=== PATIENT | male | born 1945 | race Caucasian/White ===

== ENCOUNTER 2017-03-13 05:59 | Emergency (ER) | payer MEDICARE ==
[2017-03-13] MEDS ORDERED: Sodium Chloride 0.9% 1,000 ML IV STA (06:22)
[2017-03-13] MEDS ORDERED: Ondansetron 4 MG/2 ML SDV IVPUSH ONE (06:27)
[2017-03-13] MEDS ORDERED: HYDROmorphone 0.5 MG/0.5 ML Syringe IVPUSH ONE (06:27)
--- NOTE | 2017-03-13 06:27 | EDM.PDOC ---
<OfficerVince - Last Filed: 03/13/17 06:24> ED HPI GENERAL MEDICAL PROBLEM - General Chief Complaint: Abdominal Pain Stated Complaint: ABD PAIN Time Seen by Provider: 03/13/17 06:00 Source of Information: Reports: Patient, Old Records, RN Notes Reviewed History Limitations: Reports: No Limitations - History of Present Illness INITIAL COMMENTS - FREE TEXT/NARRATIVE: 71-year-old gentleman presents emergency department day complaint of left flank pain, he states it started in the evening yesterday and it progressively got worse through the night he does feel nauseated also has a history of abdominal aneurysm rupture is concerned as the feeling feels very similar to that no lightheadedness no syncopal events he is not diaphoretic LLQ/ Left flank Pain Score (Numeric/FACES): 8 - Related Data Allergies Allergy/AdvReac Type Severity Reaction Status Date / Time Penicillins Allergy Rash Verified 03/13/17 06:10 Sulfa (Sulfonamide Allergy Rash Verified 03/13/17 06:10 Antibiotics) Home Meds: Home Meds ALPRAZolam [Alprazolam] 1 tab PO TID PRN 03/13/17 [History] Clopidogrel [Plavix] 75 mg PO DAILY 03/13/17 [History] Ezetimibe [Zetia] 10 mg PO DAILY 03/13/17 [History] Hydrochlorothiazide 25 mg PO DAILY 03/13/17 [History] Metoprolol Tartrate [Metoprolol Tartrate] 50 mg PO BEDTIME 03/13/17 [History] Metoprolol Tartrate [Metoprolol Tartrate] 100 mg PO DAILY 03/13/17 [History] NIFEdipine [Nifedipine ER] 1 tab PO DAILY 03/13/17 [History] atorvaSTATin [Lipitor] 80 mg PO BEDTIME 03/13/17 [History] Past Medical History HEENT History: Reports: Impaired Vision Cardiovascular History: Reports: High Cholesterol, Hypertension Psychiatric History: Reports: Anxiety - Infectious Disease History Infectious Disease History: Reports: Chicken Pox, Measles, Mumps - Past Surgical History HEENT Surgical History: Reports: Tonsillectomy GI Surgical History: Reports: Appendectomy, Cholecystectomy, Hernia, Inguinal, Other (See Below) Other GI Surgeries/Procedures: hemorrhoidectomy Musculoskeletal Surgical History: Reports: Other (See Below) Other Musculoskeletal Surgeries/Procedures:: knee surgery Social & Family History - Tobacco Use Smoking Status *Q: Never Smoker Second Hand Smoke Exposure: No - Caffeine Use Caffeine Use: Reports: Coffee, Tea - Recreational Drug Use Recreational Drug Use: No ED ROS GENERAL - Review of Systems Review Of Systems: See Below Constitutional: Reports: No Symptoms Respiratory: Reports: No Symptoms Cardiovascular: Reports: No Symptoms GI/Abdominal: Reports: Abdominal Pain, Constipation, Nausea. Denies: Vomiting : Reports: Flank Pain Musculoskeletal: Reports: No Symptoms Skin: Reports: No Symptoms Neurological: Reports: No Symptoms ED EXAM, GI/ABD - Physical Exam Exam: See Below Exam Limited By: No Limitations General Appearance: Alert, Moderate Distress (Secondary to pain) Eyes: Bilateral: Normal Appearance Head: Atraumatic, Normocephalic Neck: Normal Inspection, Supple, Non-Tender, Full Range of Motion Respiratory/Chest: No Respiratory Distress, Lungs Clear, Normal Breath Sounds, No Accessory Muscle Use Cardiovascular: Regular Rate, Rhythm, No Murmur GI/Abdominal Exam: Normal Bowel Sounds, Soft, No Distention, No Mass, Tender ( Tender along the left flank) Extremities: Normal Inspection, No Pedal Edema Course - Vital Signs Last Recorded V/S: Last Vital Signs Temp 97.6 F 03/13/17 07:06 Pulse 78 03/13/17 06:42 Resp 15 03/13/17 07:06 BP 131/72 03/13/17 07:06 Pulse Ox 93 L 03/13/17 07:06 - Orders/Labs/Meds Orders: Active Orders 24 hr Category Date Time Status Peripheral IV Care [RC] . DIRECTED Care 03/13/17 06:23 Active Abdomen Pelvis w Cont [CT] Urgent Exams 03/13/17 06:22 Taken ED Antiemetic Medication Reflex [OM.PC] Click to Edit Oth 03/13/17 06:22 Ordered ED Pain Medications Reflex [OM.PC] Click to Edit Oth 03/13/17 06:22 Ordered Peripheral IV Insertion Adult [OM.PC] Urgent Oth 03/13/17 06:22 Ordered Labs: Laboratory Tests 03/13/17 03/13/17 03/13/17 Range/Units 06:38 06:38 06:38 WBC 13.1 H (4.5-11.0) K/uL RBC 5.98 H (4.30-5.90) M/uL Hgb 18.1 H* (12.0-15.0) g/dL Hct 51.4 (40.0-54.0) % MCV 86 (80-98) fL MCH 30 (27-31) pg MCHC 35 (32-36) % Plt Count 245 (150-400) K/uL Neut % (Auto) 71 H (36-66) % Lymph % (Auto) 22 L (24-44) % Karn[place] % (Auto) 6 (2-6) % Eos % (Auto) 1 L (2-4) % Baso % (Auto) 0 (0-1) % Sodium 138 L (140-148) mmol/L Potassium 4.0 (3.6-5.2) mmol/L Chloride 100 (100-108) mmol/L Carbon Dioxide 27 (21-32) mmol/L Anion Gap 15.0 H (5.0-14.0) mmol/L BUN 19 H (7-18) mg/dL Creatinine 1.4 H (0.8-1.3) mg/dL Est Cr Clr Drug Dosing 49.25 mL/min Estimated GFR (MDRD) 50 L (>60) Glucose 150 H (74-106) mg/dL Lactic Acid 3.4 H (0.4-2.0) mmol/L Calcium 9.6 (8.5-10.1) mg/dL Total Bilirubin 1.0 (0.2-1.0) mg/dL AST 39 H (15-37) U/L ALT 37 (12-78) U/L Alkaline Phosphatase 104 (46-116) U/L Troponin I < 0.017 (0.000-0.056) ng/mL Total Protein 8.1 (6.4-8.2) g/dL Albumin 4.0 (3.4-5.0) g/dL Globulin 4.1 H (2.3-3.5) g/dL Albumin/Globulin Ratio 1.0 L (1.2-2.2) Lipase 349 (73-393) U/L Urine Color Urine Appearance Urine pH (4.5-8.0) Ur Specific [place] (1.008-1.030) Urine Protein (NEGATIVE) mg/dL Urine Glucose (UA) (NEGATIVE) mg/dL Urine Ketones (NEGATIVE) mg/dL Urine Occult Blood (NEGATIVE) Urine Nitrite (NEGAITVE) Urine Bilirubin (NEGATIVE) Urine Urobilinogen (NORMAL) mg/dL Ur Leukocyte Esterase (NEGATIVE) Urine RBC (0-5) Urine WBC (0-5) Ur Epithelial Cells Amorphous Sediment Urine Bacteria Urine Mucus 03/13/17 Range/Units 08:00 WBC (4.5-11.0) K/uL RBC (4.30-5.90) M/uL Hgb (12.0-15.0) g/dL Hct (40.0-54.0) % MCV (80-98) fL MCH (27-31) pg MCHC (32-36) % Plt Count (150-400) K/uL Neut % (Auto) (36-66) % Lymph % (Auto) (24-44) % Karnes % (Auto) (2-6) % Eos % (Auto) (2-4) % Baso % (Auto) (0-1) % Sodium (140-148) mmol/L Potassium (3.6-5.2) mmol/L Chloride (100-108) mmol/L Carbon Dioxide (21-32) mmol/L Anion Gap (5.0-14.0) mmol/L BUN (7-18) mg/dL Creatinine (0.8-1.3) mg/dL Est Cr Clr Drug Dosing mL/min Estimated GFR (MDRD) (>60) Glucose (74-106) mg/dL Lactic Acid (0.4-2.0) mmol/L Calcium (8.5-10.1) mg/dL Total Bilirubin (0.2-1.0) mg/dL AST (15-37) U/L ALT (12-78) U/L Alkaline Phosphatase (46-116) U/L Troponin I (0.000-0.056) ng/mL Total Protein (6.4-8.2) g/dL Albumin (3.4-5.0) g/dL Globulin (2.3-3.5) g/dL Albumin/Globulin Ratio (1.2-2.2) Lipase (73-393) U/L Urine Color Yellow Urine Appearance Clear Urine pH 7.0 (4.5-8.0) Ur Specific [place] 1.010 (1.008-1.030) Urine Protein Negative (NEGATIVE) mg/dL Urine Glucose (UA) Normal (NEGATIVE) mg/dL Urine Ketones Negative (NEGATIVE) mg/dL Urine Occult Blood Negative (NEGATIVE) Urine Nitrite Negative (NEGAITVE) Urine Bilirubin Negative (NEGATIVE) Urine Urobilinogen Normal (NORMAL) mg/dL Ur Leukocyte Esterase Negative (NEGATIVE) Urine RBC 0-5 (0-5) Urine WBC Not seen (0-5) Ur Epithelial Cells Rare Amorphous Sediment Not seen Urine Bacteria Not seen Urine Mucus Not seen Meds: Medications Discontinued Medications Generic Name Dose Route Start Last Admin Trade Name Freq PRN Reason Stop Dose Admin Hydromorphone HCl 0.5 mg 03/13/17 06:27 03/13/17 06:36 Dilaudid IVPUSH 03/13/17 06:28 0.5 mg ONETIME ONE Administration Sodium Chloride 1,000 mls @ 999 mls/hr 03/13/17 06:22 03/13/17 06:33 Normal Saline IV 03/13/17 07:22 999 mls/hr .BOLUS STA Administration Sodium Chloride 100 mls @ 3.5 mls/sec 03/13/17 07:30 03/13/17 07:39 Normal Saline IV 03/13/17 23:00 3.5 mls/sec ASDIRECTED YOMI Administration Iopamidol 150 ml 03/13/17 07:19 03/13/17 07:39 Isovue-300 (61%) IV 03/14/17 07:20 138 ml . DIRECTED PRN Administration RADIOLOGY EXAM Ketorolac Tromethamine 30 mg 03/13/17 07:59 03/13/17 08:04 Toradol IVPUSH 03/13/17 08:00 30 mg ONETIME ONE Administration Ondansetron HCl 4 mg 03/13/17 06:27 03/13/17 06:35 Zofran IVPUSH 03/13/17 06:28 4 mg ONETIME ONE Administration Sodium Chloride 10 ml 03/13/17 06:22 03/13/17 08:05 Saline Flush FLUSH 03/13/17 23:00 10 ml ASDIRECTED PRN Administration Keep Vein Open Departure - Departure Disposition: Home, Self-Care 01 Clinical Impression: Abdominal pain Qualifiers: Abdominal location: left lower quadrant Qualified Code(s): R10.32 - Left lower quadrant pain - Discharge Information Instructions: Viral Gastroenteritis, Adult, [id number] Referrals: Hang Pacheco DO [Primary Care Provider] - Forms: ED Department Discharge Care Plan Goals: Continue with fluids, a few more Dulcolax suppositories may help, and use pain medication up to 3 times daily if needed. Return anytime if worsening or concerns. <Silvio Aragon - Last Filed: 03/13/17 10:18> Course - Re-Assessments/Exams Free Text/Narrative Re-Assessment/Exam: 03/13/17 08:41 UA was negative. CBC revealed a normal white count. Creatinine was slightly elevated and GFR was 50, so the patient was hydrated and a CT of his abdomen and pelvis with IV contrast was obtained. 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 After the CT 30 mg IV Toradol bolus was given which gave the patient marked relief. He'll be discharged with a few additional doses of Toradol to take 2-3 times daily for a maximum of 5 days, can use a few more Dulcolax suppositories if needed and return if worsening. Departure - Departure Time of Disposition: :17 Condition: Good
[2017-03-13] MEDS: Sodium Chloride 0.9% 10 ML Syringe FLUSH PRN ×2 (06:37→08:05)
[2017-03-13 07:10] VITALS: BP 131/72
[2017-03-13] MEDS ORDERED: Iopamidol 612 MG/ML 150 ML Bottle IV PRN (07:19)
[2017-03-13] MEDS ORDERED: Sodium Chloride 0.9% 100 ML IV SCH (07:30)
[2017-03-13] MEDS ORDERED: Ketorolac 30 MG/ML SDV IVPUSH ONE (07:59)
== END 2017-03-13 09:18 | disposition home or self-care (01) ==
LOC: JP.ED 05:59
DX: R10.32 Left lower quadrant pain (principal); I10 Essential (primary) hypertension; E78.00 Pure hypercholesterolemia, unspecified; F41.9 Anxiety disorder, unspecified; Z90.49 Acquired absence of other specified parts of digestive tract; Z98.890 Other specified postprocedural states; Z79.02 Long term (current) use of antithrombotics/antiplatelets; Z79.899 Other long term (current) drug therapy; Z88.0 Allergy status to penicillin; Z88.2 Allergy status to sulfonamides
CPT/HCPCS: 36415; 74177; 80053; 81001; 83605; 83690; 84484; 85025; 96361; 96374; 96375; 99284; J1170; J1885; J2405; J7030; J7040; J7050